=== PATIENT | male | born 2000 | race Caucasian/White ===

== ENCOUNTER 2019-07-22 22:24 | Emergency (ER) | payer MEDICAID, OTHER ==
[~2019-07-22] VITALS: Ht 177.8 cm; Wt 65.0 kg
[2019-07-22] MEDS ORDERED: KETOROLAC 60MG/2ML VIAL IM ONE (22:45)
[2019-07-23 02:28] VITALS: BP 109/56
== END 2019-07-23 02:31 | disposition home or self-care (01) ==
LOC: ER 22:24
DX: M94.0 Chondrocostal junction syndrome [Tietze] (principal); R07.89 Other chest pain
CPT/HCPCS: 36415; 84484; 93005; 96372; 99284; J1885

== ENCOUNTER 2019-07-30 22:09 | Emergency (ER) | payer OTHER ==
[~2019-07-30] VITALS: Ht 175.3 cm; Wt 89.0 kg
[2019-07-30 23:32] LABS: CLARITY URINE CLEAR (CLEAR); COLOR URINE YELLOW (YELLOW); KETONES URINE NEGATIVE (NEGATIVE); LEUKOCYTE ESTERASE URINE NEGATIVE (NEGATIVE); NITRITE URINE NEGATIVE (NEGATIVE); OCCULT BLOOD URINE NEGATIVE (NEGATIVE); PROTEIN URINE TRACE (NEGATIVE); SPECIFIC GRAVITY URINE 1.027 (1.005-1.030)
[2019-07-31 01:03] VITALS: BP 138/61
== END 2019-07-31 01:05 | disposition home or self-care (01) ==
LOC: ER 22:09
DX: T40.7X1A Poisoning by cannabis (derivatives), accidental (unintentional), initial encounter (principal); R07.89 Other chest pain; M54.89 Other dorsalgia; M25.512 Pain in left shoulder; M25.511 Pain in right shoulder; M79.641 Pain in right hand; F12.188 Cannabis abuse with other cannabis-induced disorder; R03.0 Elevated blood-pressure reading, without diagnosis of hypertension; Y92.89 Other specified places as the place of occurrence of the external cause
CPT/HCPCS: 71045; 81003; 93005; 99285